=== PATIENT | male | born 1970 | race Hispanic/Latino ===

== ENCOUNTER 2019-09-29 09:15 | Emergency (ER) | payer SELFPAY ==
[2019-09-29] MEDS ORDERED: Ibuprofen 800 MG TAB ONE (09:50)
[2019-09-29] MEDS ORDERED: Acetaminophen 500 MG TAB ONE (09:51)
--- NOTE | 2019-09-29 10:38 | RAD ---
RADIOGRAPH LUMBAR SPINE 2 VIEWS: DATE: 09/29/2019 HISTORY: Lumbar spine trauma. FINDINGS: Vertebral body heights are maintained. There is no evidence of fracture. IMPRESSION: No evidence of compression fracture.
== END 2019-09-29 10:58 | disposition home or self-care (01) ==
LOC: ERS 09:15
DX: S30.0XXA Contusion of lower back and pelvis, initial encounter (principal); V89.2XXA Person injured in unspecified motor-vehicle accident, traffic, initial encounter
CPT/HCPCS: 72100